=== PATIENT | female | born 1975 | race Caucasian/White ===

== ENCOUNTER 2021-05-15 14:13 | Inpatient (IN) | payer MEDICAID ==
[~2021-05-15] VITALS: Ht 177.8 cm; Wt 103.8 kg
[2021-05-15] MEDS ORDERED: NITROGLYCERIN SUBLINGUAL 0.4 MG BOTTLE OF 25. SL PRN ×2 (14:45→19:00)
[2021-05-15] MEDS ORDERED: ASPIRIN 325 MG TABLET PO ONE (14:45)
[2021-05-15 14:58] LABS: BASO # 0.1 x10^3/uL (0.0-0.2); BASO % 1 % (0-3); EOS # 0.1 x10^3/uL (0.0-0.7); EOS % 1 % (0-3); HEMATOCRIT 32.3 % (36.0-47.0); HEMOGLOBIN 10.8 g/dL (12.0-15.5); LYMPH # 2.7 x10^3/uL (1.0-4.8); LYMPH % 24 % (24-48); MEAN CORPUSCULAR HEMOGLOBIN 25 pg (25-35); MEAN CORPUSCULAR HGB CONC 34 g/dL (31-37); MEAN CORPUSCULAR VOLUME 75 fL (79-100); MONO # 0.6 x10^3/uL (0.0-1.1); MONO % 6 % (0-9); NEUT # 7.6 x10^3/uL (1.8-7.7); NEUT % 69 % (31-73); PLATELET COUNT 308 x10^3/uL (140-400); RED BLOOD COUNT 4.32 x10^6/uL (3.50-5.40); RED CELL DISTRIBUTION WIDTH 15.2 % (11.5-14.5); WHITE BLOOD COUNT 11.1 x10^3/uL (4.0-11.0)
--- NOTE | 2021-05-15 15:08 | RAD ---
AP chest. HISTORY: Chest pain AP view was taken of the chest. There is no pneumothorax or pleural effusion. Heart is normal in size . There are no infiltrates. IMPRESSION: 1. No acute chest disease. Electronically signed by: Morris Small MD (05/15/2021 3:06 PM) [id number]
--- NOTE | 2021-05-15 15:19 | PHYS DOC ---
Past Medical History Past Medical History: High Cholesterol, Hypertension Past Surgical History: Cholecystectomy, Tubal ligation General Adult EDM: Chief Complaint: CHEST PAIN HPI: HPI: Patient is a 46 year old female with a history of high cholesterol, hypertens ion, who presents to the ED today complaining of 2 out of 10 stabbing right- sided chest pain, symptoms have been going on intermittently for 2 days. Patient states symptoms are worse on movement as well as laying back. She states she takes hydrocodone for chronic back pain and this has been relieving the symptoms. Denies any pain radiating to bilateral upper extremities. She states she had a stress test 2 years ago which was negative. 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 Review of Systems: Review of Systems: Constitutional: Denies fever or chills. [] Eyes: Denies change in visual acuity. [] HENT: Denies nasal congestion or sore throat. [] Respiratory: Denies cough or shortness of breath. [] Cardiovascular: Reports right-sided chest pain GI: Denies abdominal pain, nausea, vomiting, bloody stools or diarrhea. [] : Denies dysuria. [] Musculoskeletal: Denies back pain or joint pain. [] Integument: Denies rash. [] Neurologic: Denies headache, focal weakness or sensory changes. [] Psychiatric: Denies depression or anxiety. [] Heart Score: C/O Chest Pain: Yes HEART Score for Chest Pain: HEART Score for Chest Pain Response (Comments) Value History Slighlty/Non-Suspicious 0 ECG Normal 0 Age >45 - < 65 1 Risk Factors 1 or 2 Risk Factors 1 Troponin < Normal Limit 0 Total 2 Risk Factors: Risk Factors: DM, Current or recent (<one month) smoker, HTN, HLP, family history of CAD, obesity. Risk Scores: Score 0 - 3: 2.5% MACE over next 6 weeks - Discharge Home Score 4 - 6: 20.3% MACE over next 6 weeks - Admit for Clinical Observation Score 7 - 10: 72.7% MACE over next 6 weeks - Early Invasive Strategies Current Medications: Current Medications Medications (Trade) Dose Ordered Sig/Vito Start Time Stop Time Status Last Admin Dose Admin Aspirin (Sujey Aspirin) 325 mg 1X ONCE 05/15/21 14:45 05/15/21 14:50 DC Morphine Sulfate (Morphine Sulfate) 4 mg PRN Q15MIN PRN 05/15/21 14:45 05/16/21 14:44 Nitroglycerin (Nitrostat) 0.4 mg PRN Q5MIN PRN 05/15/21 14:45 05/16/21 14:44 Allergies: Allergies: Allergies Coded Allergies Type Severity Reaction Last Updated Verified Penicillins Allergy Severe 05/15/21 Yes codeine Allergy Intermediate 05/15/21 Yes Physical Exam: PE: Constitutional: Well developed, well nourished, no acute distress, non-toxic appearance. [] HENT: Normocephalic, atraumatic, bilateral external ears normal, oropharynx moist, no oral exudates, nose normal. [] Eyes: PERRLA, EOMI, conjunctiva normal, no discharge. [] Neck: Normal range of motion, no tenderness, supple, no stridor. [] Cardiovascular:Heart rate regular rhythm, no murmur [] Lungs & Thorax: Bilateral breath sounds clear to auscultation [] Abdomen: Bowel sounds normal, soft, no tenderness, no masses, no pulsatile masses. [] Skin: Warm, dry, no erythema, no rash. [] Back: No tenderness, no CVA tenderness. [] Extremities: No tenderness, no cyanosis, no clubbing, ROM intact, no edema. [] Neurologic: Alert and oriented X 3, normal motor function, normal sensory function, no focal deficits noted. [] Psychologic: Affect normal, judgement normal, mood normal. [] Current Patient Data: Labs: Laboratory Tests Test 05/15/21 14:30 White Blood Count 11.1 x10^3/uL (4.0-11.0) H Red Blood Count 4.32 x10^6/uL (3.50-5.40) Hemoglobin 10.8 g/dL (12.0-15.5) L Hematocrit 32.3 % (36.0-47.0) L Mean Corpuscular Volume 75 fL (79-100) L Mean Corpuscular Hemoglobin 25 pg (25-35) Mean Corpuscular Hemoglobin Concent 34 g/dL (31-37) Red Cell Distribution Width 15.2 % (11.5-14.5) H Platelet Count 308 x10^3/uL (140-400) Neutrophils (%) (Auto) 69 % (31-73) Lymphocytes (%) (Auto) 24 % (24-48) Monocytes (%) (Auto) 6 % (0-9) Eosinophils (%) (Auto) 1 % (0-3) Basophils (%) (Auto) 1 % (0-3) Neutrophils # (Auto) 7.6 x10^3/uL (1.8-7.7) Lymphocytes # (Auto) 2.7 x10^3/uL (1.0-4.8) Monocytes # (Auto) 0.6 x10^3/uL (0.0-1.1) Eosinophils # (Auto) 0.1 x10^3/uL (0.0-0.7) Basophils # (Auto) 0.1 x10^3/uL (0.0-0.2) Laboratory Tests 05/15/21 14:30 Vital Signs: Vital Signs Date Time Temp Pulse Resp B/P (MAP) Pulse Ox O2 Delivery O2 Flow Rate FiO2 05/15/21 14:20 98.7 78 18 133/78 (96) 95 Room Air 98.7 EKG: EKG: [][id number] Romano sinus rhythm heart rate 80 no STEMI [] Radiology/Procedures: Radiology/Procedures: PROCEDURE: PORTABLE CHEST 1V AP chest. HISTORY: Chest pain AP view was taken of the chest. There is no pneumothorax or pleural effusion. Heart is normal in size. There are no infiltrates. IMPRESSION: 1. No acute chest disease. Electronically signed by: Morris Small MD (05/15/2021 3:06 PM) [id number] DICTATED and SIGNED BY: MORRIS SMALL MD DATE: 05/15/21 1505 Course & Med Decision Making: Course & Med Decision Making Pertinent Labs and Imaging studies reviewed. (See chart for details) This a 46-year-old female patient presented to the ED today complaining of right-sided chest pain, symptoms for 2 days. Vitals on arrival to the ED temperature 98.7, heart rate 78, respiration 18, b lood pressure 133/78, O2 sats 95%. CBC with a WBC of 11.1, hemoglobin 10.8 with hematocrit of 32.3, no previous labs in this hospital. UA pending. Initial first sensitivity troponin is negative, EKG is negative, chest x-ray is negative Spoke to Dr. Mcfadden who accepted patient for admission Routine consult placed for cardiology Suridner Disclaimer: Surinder Disclaimer: This electronic medical record was generated, in whole or in part, using a voice recognition dictation system. Departure Departure Impression: Primary Impression: Chest pain Qualified Codes: R07.9 - Chest pain, unspecified Disposition: 09 ADMITTED INPATIENT Condition: STABLE GERA KANG [employer] CONSULTANT May 15, 2021 15:19
[2021-05-15 15:23] LABS: CALCIUM 8.8 mg/dL (8.5-10.1); CREATININE 0.8 mg/dL (0.6-1.0); GFR 77.2; POTASSIUM 3.7 mmol/L (3.5-5.1)
[2021-05-15] MEDS: MORPHINE SULFATE 4 MG/ML INJ. IV/SQ PRN ×2 (15:36→19:29)
[2021-05-15 15:37] LABS: ALBUMIN/GLOBULIN RATIO 0.6 (1.0-1.7); MAGNESIUM 1.7 mg/dL (1.8-2.4); TOTAL BILIRUBIN 0.3 mg/dL (0.2-1.0); TOTAL PROTEIN 8.4 g/dL (6.4-8.2)
[2021-05-15 17:54] LABS: BARBITURATES NEG (NEG); BENZODIAZEPINES NEG (NEG); CANNABINOIDS NEG (NEG); COCAINE NEG (NEG); METHADONE NEG (NEG); OPIATES NEG (NEG); PHENCYCLIDINE NEG (NEG)
[2021-05-15 17:55] LABS: AMPHETAMINE/METHAMPHETAMINE NEG (NEG)
--- NOTE | 2021-05-15 18:53 | HP ---
DATE OF SERVICE: 05/15/2021 ADMIT DATE: 05/15/2021 CHIEF COMPLAINT: Chest pain. HISTORY OF PRESENT ILLNESS: The patient is a pleasant 46-year-old female who presents to the ER with chest pain, rated at 7/10. This has been occurring for several days, worse with moving, better with sitting still. I discussed the case with ER physician. We are going to admit the patient and consult Cardiology. PAST MEDICAL HISTORY: Hypertension, hyperlipidemia, cholecystectomy, tubal ligation. ALLERGIES: PENICILLIN, CODEINE. FAMILY HISTORY: Diabetes. SOCIAL HISTORY: She does not drink, smoke or take drugs. MEDICATIONS: Reviewed, please refer to the MRAD. REVIEW OF SYSTEMS: GENERAL: No history of weight change, weakness or fevers. SKIN: No bruising, hair changes or rashes. EYES: No blurred, double or loss of vision. NOSE AND THROAT: No history of nosebleeds, hoarseness or sore throat. HEART: She complains of chest pain. LUNGS: Denies cough, hemoptysis, wheezing or shortness of breath. GASTROINTESTINAL: Denies changes in appetite, nausea, vomiting, diarrhea or constipation. GENITOURINARY: No history of frequency, urgency, hesitancy or nocturia. NEUROLOGIC: Denies history of numbness, tingling, tremor or weakness. PSYCHIATRIC: No history of panic, anxiety or depression. ENDOCRINE: No history of heat or cold intolerance, polyuria or polydipsia. EXTREMITIES: Denies muscle weakness, joint pain, pain on walking or stiffness. PHYSICAL EXAMINATION: VITALS: Within normal limits and are stable. GENERAL: No apparent distress. Alert and oriented. HEENT: Normal cephalic atraumatic, external auditory canals are patent. EYES: Extraocular muscles are intact, pupils are equally round and reactive to light and accommodation. MUSCULOSKELETAL: Well developed, well nourished, good range of motion. ENDOCRINE: No thyromegaly was palpated. LYMPHATICS: No cervical chain or axillary nodes were noted. HEMATOPOIETIC: No bruising. NECK: Supple, no JVD, no thyromegaly was noted. LUNGS: Clear to auscultation in all lung eastman without rhonchi or wheezing. HEART: RRR, S1, S2 present. Peripheral pulses intact, no obvious murmurs were noted. ABDOMEN: Soft, nontender. Positive bowel sounds no organomegaly, normal bowel sounds. EXTREMITIES: Without any cyanosis, clubbing, or edema. Pedal pulses intact, Homans sign is negative. NEUROLOGIC: Normal speech, normal tone. A and O x 3, moves all extremities, no obvious focal deficits. PSYCHIATRIC: Normal affect, normal mood. Stable. SKIN: No ulcerations or rashes, good skin turgor, no jaundice. VASCULAR: Good capillary refill, neurovascular bundle appears to be intact. LABORATORY DATA: White count is 11. Troponin less than 4. Sodium 133. Drug screen negative. Chest x-ray negative. ASSESSMENT AND PLAN: Chest pain, rule out coronary artery disease. The patient will be admitted. We will check serial enzymes, serial EKGs, cardiac monitoring, home meds. Deep vein thrombosis prophylaxis. Full code. Consult Cardiology. PARISH/WILL DR: PARISH/clotilde TID: [phone]
[2021-05-15] MEDS ORDERED: ONDANSETRON PF 4 MG/2 ML VIAL. IVP PRN (19:00)
[2021-05-15] MEDS ORDERED: fentaNYL PF VIAL 100 MCG/2 ML VIAL IVP PRN (19:00)
[2021-05-15 21:24] VITALS: BP 173/89
[2021-05-15] MEDS: ACETAMINOPHEN 325 MG TABLET. PO PRN (21:55)
[2021-05-15] MEDS ORDERED: LISI10TA16 PO (22:10)
[2021-05-15] MEDS ORDERED: LORA10CA PO (22:11)
[2021-05-15] MEDS ORDERED: BUDE10.22 IH (22:11)
[2021-05-15] MEDS ORDERED: MONT10TA49 PO (22:11)
[2021-05-15] MEDS ORDERED: ALBU2.5V5 NEB (22:12)
[2021-05-15] MEDS ORDERED: [UNRECOGNIZED DRUG - REMARK] (22:14)
[2021-05-15] MEDS ORDERED: cholesterol med (22:14)
[2021-05-15] MEDS ORDERED: IBUP-1060 PO (22:14)
[2021-05-15 23:11] VITALS: BP 185/87
[2021-05-16] MEDS: LISINOPRIL 10 MG TABLET PO SCH ×2 (00:25→08:07)
[2021-05-16] MEDS: ACETAMINOPHEN 325 MG TABLET. PO PRN ×2 (02:03→08:10)
[2021-05-16 02:23] LABS: BASO % 0 % (0-3); EOS # 0.1 x10^3/uL (0.0-0.7); EOS % 1 % (0-3); HEMATOCRIT 33.7 % (36.0-47.0); HEMOGLOBIN 11.3 g/dL (12.0-15.5); LYMPH # 2.9 x10^3/uL (1.0-4.8); LYMPH % 16 % (24-48); MEAN CORPUSCULAR HEMOGLOBIN 26 pg (25-35); MEAN CORPUSCULAR HGB CONC 34 g/dL (31-37); MEAN CORPUSCULAR VOLUME 76 fL (79-100); MONO # 0.7 x10^3/uL (0.0-1.1); MONO % 4 % (0-9); NEUT % 79 % (31-73); PLATELET COUNT 355 x10^3/uL (140-400); RED BLOOD COUNT 4.43 x10^6/uL (3.50-5.40); RED CELL DISTRIBUTION WIDTH 14.9 % (11.5-14.5); WHITE BLOOD COUNT 17.8 x10^3/uL (4.0-11.0)
[2021-05-16 02:52] LABS: CREATININE 0.9 mg/dL (0.6-1.0); GFR 67.4; POTASSIUM 3.5 mmol/L (3.5-5.1)
[2021-05-16 03:02] VITALS: BP 143/91
[2021-05-16 03:37] LABS: % EOS 1 % (0-5); % LYMPHS 23 % (24-48); % MONOS 3 % (0-10); % SEGS 73 % (35-66); PLT ESTIMATE ADEQUATE (ADEQUATE)
[2021-05-16 07:05] VITALS: BP 142/90
--- NOTE | 2021-05-16 09:26 | PDOC2 ---
CONSULT Date of Consult Date of Consult DATE: 05/16/21 TIME: 09:26 Reason for Consult Reason for Consult: Chest pain Referring Physician Referring Physician: Dr. Mcfadden Identification/Chief Complaint Chief Complaint Chest pain Source Source: Chart review, Patient History of Present Illness Reason for Visit: 46-year-old female without any previous cardiac history presented complaining of approximately 2-day history of on and off retrosternal chest pain that she described as pressure-like sensation, 8/10 severity not related to exertion or food intake. She stated that she has been under a lot of stress ever since her dad 2 months ago. She denied any orthopnea/PND, palpitations or syncope. She is currently chest pain-free. Past Medical History Past Medical History Hypertension Hyperlipidemia Past Surgical History Past Surgical History Cholecystectomy Tubal ligation Family History Family History Positive for coronary artery disease and hypertension Social History Social History Patient denied any smoking, alcohol or drug use Current Problem List Problem List Problems Medical Problems: (1) Chest pain Status: Acute Current Medications Current Medications Current Medications Aspirin (Sujey Aspirin) 325 mg 1X ONCE PO Last administered on 05/15/21at 15:34; Start 05/15/21 at 14:45; Stop 05/15/21 at 14:50; Status DC Nitroglycerin (Nitrostat) 0.4 mg PRN Q5MIN PRN SL CP RATING > 1/10 Last admin istered on 05/15/21at 15:35; Start 05/15/21 at 14:45; Stop 05/16/21 at 14:44 Morphine Sulfate (Morphine Sulfate) 4 mg PRN Q15MIN PRN IV/SQ PAIN GREATER THAN 3/10 Last administered on 05/15/21at 19:29; Start 05/15/21 at 14:45; Stop 05/16/21 at 14:44 Ondansetron HCl (Zofran) 4 mg PRN Q8HRS PRN IVP NAUSEA/VOMITING Last administered on 05/15/21at 19:27; Start 05/15/21 at 19:00; Stop 05/16/21 at 18:59 Fentanyl Citrate (Fentanyl 2ml Vial) 50 mcg PRN Q1HR PRN IVP PAIN; Start 05/15/21 at 19:00; Stop 05/16/21 at 18:59 Acetaminophen (Tylenol) 650 mg PRN Q4HRS PRN PO FEVER > 100.3'F Last administered on 05/16/21at 08:10; Start 05/15/21 at 19:00; Stop 05/16/21 at 18:59 Nitroglycerin (Nitrostat) 0.4 mg PRN Q5MIN PRN SL CHEST PAIN; Start 05/15/21 at 19:00; Stop 05/16/21 at 18:59; Status Cancel Lisinopril (Prinivil) 10 mg DAILY PO Last administered on 05/16/21at 08:07; Start 05/16/21 at 00:30 Active Scripts Active Reported Ibuprofen 800 Mg Tablet 800 Mg PO PRN Q6HRS PRN [musle relaxer] [cholesterol med] Albuterol Sulfate Neb Soln (Albuterol Sulfate) 2.5 Mg/3 Ml Vial.neb 1 Vial NEB PRN Q4HRS PRN Symbicort 80-4.5 Mcg Inhaler (Budesonide/Formoterol Fumarate) 10.2 Gm Hfa.aer.ad 2 Puff IH BID Montelukast Sodium Tablet (Montelukast Sodium) 10 Mg Tablet 10 Mg PO HS Claritin (Loratadine) 10 Mg Capsule 1 Cap PO DAILY 30 Days Lisinopril 10 Mg Tablet 1 Tab PO DAILY Allergies Allergies: Coded Allergies: Penicillins (Verified Allergy, Severe, 05/15/21) codeine (Verified Allergy, Intermediate, 05/15/21) ROS PSYCHOLOGICAL ROS: No: Hallucinations Eyes: No Loss of vision HEENT: No: Epistaxis Respiratory: No: Hemoptysis, Shortness of breath Cardiovascular: yes Chest Pain Gastrointestinal: No Vomiting Genitourinary: No Hematuria Neurological: No Seizures Skin: No Rash Physical Exam General: Alert, Oriented X3, No acute distress HEENT: Atraumatic Lungs: Clear to auscultation Heart: Regular rate Abdomen: Soft Extremities: No edema Neuro: Normal speech Psych/Mental Status: Mood NL Vitals VITALS Vital Signs Date Time Temp Pulse Resp B/P (MAP) Pulse Ox O2 Delivery O2 Flow Rate FiO2 05/16/21 08:07 98 143/91 05/16/21 07:05 98.9 16 98 Room Air 98.9 05/16/21 03:02 2.0 Labs Labs Laboratory Tests Test 05/15/21 14:30 05/15/21 15:20 05/15/21 23:00 05/16/21 02:00 White Blood Count 11.1 x10^3/uL (4.0-11.0) 17.8 x10^3/uL (4.0-11.0) Red Blood Count 4.32 x10^6/uL (3.50-5.40) 4.43 x10^6/uL (3.50-5.40) Hemoglobin 10.8 g/dL (12.0-15.5) 11.3 g/dL (12.0-15.5) Hematocrit 32.3 % (36.0-47.0) 33.7 % (36.0-47.0) Mean Corpuscular Volume 75 fL (79-100) 76 fL (79-100) Mean Corpuscular Hemoglobin 25 pg (25-35) 26 pg (25-35) Mean Corpuscular Hemoglobin Concent 34 g/dL (31-37) 34 g/dL (31-37) Red Cell Distribution Width 15.2 % (11.5-14.5) 14.9 % (11.5-14.5) Platelet Count 308 x10^3/uL (140-400) 355 x10^3/uL (140-400) Neutrophils (%) (Auto) 69 % (31-73) 79 % (31-73) Lymphocytes (%) (Auto) 24 % (24-48) 16 % (24-48) Monocytes (%) (Auto) 6 % (0-9) 4 % (0-9) Eosinophils (%) (Auto) 1 % (0-3) 1 % (0-3) Basophils (%) (Auto) 1 % (0-3) 0 % (0-3) Neutrophils # (Auto) 7.6 x10^3/uL (1.8-7.7) 14.0 x10^3/uL (1.8-7.7) Lymphocytes # (Auto) 2.7 x10^3/uL (1.0-4.8) 2.9 x10^3/uL (1.0-4.8) Monocytes # (Auto) 0.6 x10^3/uL (0.0-1.1) 0.7 x10^3/uL (0.0-1.1) Eosinophils # (Auto) 0.1 x10^3/uL (0.0-0.7) 0.1 x10^3/uL (0.0-0.7) Basophils # (Auto) 0.1 x10^3/uL (0.0-0.2) 0.0 x10^3/uL (0.0-0.2) Sodium Level 133 mmol/L (136-145) 134 mmol/L (136-145) Potassium Level 3.7 mmol/L (3.5-5.1) 3.5 mmol/L (3.5-5.1) Chloride Level 98 mmol/L (98-107) 98 mmol/L (98-107) Carbon Dioxide Level 21 mmol/L (21-32) 26 mmol/L (21-32) Anion Gap 14 (6-14) 10 (6-14) Blood Urea Nitrogen 11 mg/dL (7-20) 10 mg/dL (7-20) Creatinine 0.8 mg/dL (0.6-1.0) 0.9 mg/dL (0.6-1.0) Estimated GFR (Cockcroft-Gault) 77.2 67.4 BUN/Creatinine Ratio 14 (6-20) Glucose Level 120 mg/dL (70-99) 134 mg/dL (70-99) Calcium Level 8.8 mg/dL (8.5-10.1) 9.0 mg/dL (8.5-10.1) Magnesium Level 1.7 mg/dL (1.8-2.4) Total Bilirubin 0.3 mg/dL (0.2-1.0) Aspartate Amino Transf (AST/SGOT) 9 U/L (15-37) Alanine Aminotransferase (ALT/SGPT) 20 U/L (14-59) Alkaline Phosphatase 93 U/L (46-116) Troponin I High Sensitivity < 4 ng/L (4-50) 6 ng/L (4-50) 4 ng/L (4-50) VP-[id number]-Type Natriuretic Peptide 66 pg/mL (0-124) Total Protein 8.4 g/dL (6.4-8.2) Albumin 3.0 g/dL (3.4-5.0) Albumin/Globulin Ratio 0.6 (1.0-1.7) Urine Opiates Screen Neg (NEG) Urine Methadone Screen Neg (NEG) Urine Barbiturates Neg (NEG) Urine Phencyclidine Screen Neg (NEG) Urine Amphetamine/Methamphetamine Neg (NEG) Urine Benzodiazepines Screen Neg (NEG) Urine Cocaine Screen Neg (NEG) Urine Cannabinoids Screen Neg (NEG) Urine Ethyl Alcohol Neg (NEG) Segmented Neutrophils % 73 % (35-66) Lymphocytes % 23 % (24-48) Monocytes % 3 % (0-10) Eosinophils % 1 % (0-5) Platelet Estimate Adequate (ADEQUATE) Laboratory Tests Test 05/15/21 14:30 05/15/21 15:20 05/15/21 23:00 05/16/21 02:00 White Blood Count 11.1 x10^3/uL (4.0-11.0) 17.8 x10^3/uL (4.0-11.0) Red Blood Count 4.32 x10^6/uL (3.50-5.40) 4.43 x10^6/uL (3.50-5.40) Hemoglobin 10.8 g/dL (12.0-15.5) 11.3 g/dL (12.0-15.5) Hematocrit 32.3 % (36.0-47.0) 33.7 % (36.0-47.0) Mean Corpuscular Volume 75 fL (79-100) 76 fL (79-100) Mean Corpuscular Hemoglobin 25 pg (25-35) 26 pg (25-35) Mean Corpuscular Hemoglobin Concent 34 g/dL (31-37) 34 g/dL (31-37) Red Cell Distribution Width 15.2 % (11.5-14.5) 14.9 % (11.5-14.5) Platelet Count 308 x10^3/uL (140-400) 355 x10^3/uL (140-400) Neutrophils (%) (Auto) 69 % (31-73) 79 % (31-73) Lymphocytes (%) (Auto) 24 % (24-48) 16 % (24-48) Monocytes (%) (Auto) 6 % (0-9) 4 % (0-9) Eosinophils (%) (Auto) 1 % (0-3) 1 % (0-3) Basophils (%) (Auto) 1 % (0-3) 0 % (0-3) Neutrophils # (Auto) 7.6 x10^3/uL (1.8-7.7) 14.0 x10^3/uL (1.8-7.7) Lymphocytes # (Auto) 2.7 x10^3/uL (1.0-4.8) 2.9 x10^3/uL (1.0-4.8) Monocytes # (Auto) 0.6 x10^3/uL (0.0-1.1) 0.7 x10^3/uL (0.0-1.1) Eosinophils # (Auto) 0.1 x10^3/uL (0.0-0.7) 0.1 x10^3/uL (0.0-0.7) Basophils # (Auto) 0.1 x10^3/uL (0.0-0.2) 0.0 x10^3/uL (0.0-0.2) Sodium Level 133 mmol/L (136-145) 134 mmol/L (136-145) Potassium Level 3.7 mmol/L (3.5-5.1) 3.5 mmol/L (3.5-5.1) Chloride Level 98 mmol/L (98-107) 98 mmol/L (98-107) Carbon Dioxide Level 21 mmol/L (21-32) 26 mmol/L (21-32) Anion Gap 14 (6-14) 10 (6-14) Blood Urea Nitrogen 11 mg/dL (7-20) 10 mg/dL (7-20) Creatinine 0.8 mg/dL (0.6-1.0) 0.9 mg/dL (0.6-1.0) Estimated GFR (Cockcroft-Gault) 77.2 67.4 BUN/Creatinine Ratio 14 (6-20) Glucose Level 120 mg/dL (70-99) 134 mg/dL (70-99) Calcium Level 8.8 mg/dL (8.5-10.1) 9.0 mg/dL (8.5-10.1) Magnesium Level 1.7 mg/dL (1.8-2.4) Total Bilirubin 0.3 mg/dL (0.2-1.0) Aspartate Amino Transf (AST/SGOT) 9 U/L (15-37) Alanine Aminotransferase (ALT/SGPT) 20 U/L (14-59) Alkaline Phosphatase 93 U/L (46-116) Troponin I High Sensitivity < 4 ng/L (4-50) 6 ng/L (4-50) 4 ng/L (4-50) KL-Pzu-I-Type Natriuretic Peptide 66 pg/mL (0-124) Total Protein 8.4 g/dL (6.4-8.2) Albumin 3.0 g/dL (3.4-5.0) Albumin/Globulin Ratio 0.6 (1.0-1.7) Urine Opiates Screen Neg (NEG) Urine Methadone Screen Neg (NEG) Urine Barbiturates Neg (NEG) Urine Phencyclidine Screen Neg (NEG) Urine Amphetamine/Methamphetamine Neg (NEG) Urine Benzodiazepines Screen Neg (NEG) Urine Cocaine Screen Neg (NEG) Urine Cannabinoids Screen Neg (NEG) Urine Ethyl Alcohol Neg (NEG) Segmented Neutrophils % 73 % (35-66) Lymphocytes % 23 % (24-48) Monocytes % 3 % (0-10) Eosinophils % 1 % (0-5) Platelet Estimate Adequate (ADEQUATE) Assessment/Plan Assessment/Plan 1. Chest pain with atypical features. Myocardial infarction has been ruled out. Plan for outpatient exercise stress echocardiogram to rule out ischemic etiology -we will schedule this through our office next week. Okay for DC from cardiac standpoint. 2. Accelerated hypertension: Resume home medication lisinopril and titrate for better control. 3. Asthma: Clinically stable 4. Hyperlipidemia Thank you for your consultation LEYDI ZARAGOZA MD May 16, 2021 09:26
[2021-05-16 11:30] VITALS: BP 130/77
[2021-05-16] MEDS ORDERED: CEPH500C PO (12:23)
[2021-05-16] MEDS ORDERED: CEPHALEXIN 250 MG CAPSULE. PO SCH (13:00)
[2021-05-16 13:19] LABS: BASE EXCESS ABG 1 mmol/L (-3-3); FIO2 ABG Room Air; HCO3 ABG 25 mmol/L (21-28); PCO2 ABG 38 mmHg (35-46); PO2 ABG 71 mmHg (75-108); SAT O2 ABG 93 % (92-99)
--- NOTE | 2021-05-16 15:39 | NUR ---
DISCHARGED PATIENT HOME. DISCHARGE INSTRUCTIONS GIVEN. PIV AND HEART MONITOR REMOVED. ESCORTED PATIENT OFF UNIT INTO A PRIVATE VEHICLE.
--- NOTE | 2021-05-16 16:28 | PDOC3 ---
Discharge Summary Visit Information Date of Admission: May 15, 2021 Date of Discharge: May 16, 2021 Final Diagnosis 1. Chest pain , miod angina, ACS ruled out 2. Accelerated hypertension: lisinopril 3. HAYDE, desat while sleeping, needs sleep study, 4. Hyperlipidemia 5. asthma, home meds Problems Medical Problems: (1) Chest pain Status: Acute Brief Hospital Course Allergies Allergies Coded Allergies Type Severity Reaction Last Updated Verified Penicillins Allergy Severe 05/15/21 Yes codeine Allergy Intermediate 05/15/21 Yes Vital Signs Vital Signs Date Time Temp Pulse Resp B/P (MAP) Pulse Ox O2 Delivery O2 Flow Rate FiO2 05/16/21 11:30 98.8 108 16 130/77 (94) 97 Room Air 98.8 05/16/21 03:02 2.0 Lab Results Laboratory Tests Test 05/15/21 14:30 05/15/21 15:20 05/15/21 23:00 05/16/21 02:00 White Blood Count 11.1 x10^3/uL (4.0-11.0) 17.8 x10^3/uL (4.0-11.0) Red Blood Count 4.32 x10^6/uL (3.50-5.40) 4.43 x10^6/uL (3.50-5.40) Hemoglobin 10.8 g/dL (12.0-15.5) 11.3 g/dL (12.0-15.5) Hematocrit 32.3 % (36.0-47.0) 33.7 % (36.0-47.0) Mean Corpuscular Volume 75 fL (79-100) 76 fL (79-100) Mean Corpuscular Hemoglobin 25 pg (25-35) 26 pg (25-35) Mean Corpuscular Hemoglobin Concent 34 g/dL (31-37) 34 g/dL (31-37) Red Cell Distribution Width 15.2 % (11.5-14.5) 14.9 % (11.5-14.5) Platelet Count 308 x10^3/uL (140-400) 355 x10^3/uL (140-400) Neutrophils (%) (Auto) 69 % (31-73) 79 % (31-73) Lymphocytes (%) (Auto) 24 % (24-48) 16 % (24-48) Monocytes (%) (Auto) 6 % (0-9) 4 % (0-9) Eosinophils (%) (Auto) 1 % (0-3) 1 % (0-3) Basophils (%) (Auto) 1 % (0-3) 0 % (0-3) Neutrophils # (Auto) 7.6 x10^3/uL (1.8-7.7) 14.0 x10^3/uL (1.8-7.7) Lymphocytes # (Auto) 2.7 x10^3/uL (1.0-4.8) 2.9 x10^3/uL (1.0-4.8) Monocytes # (Auto) 0.6 x10^3/uL (0.0-1.1) 0.7 x10^3/uL (0.0-1.1) Eosinophils # (Auto) 0.1 x10^3/uL (0.0-0.7) 0.1 x10^3/uL (0.0-0.7) Basophils # (Auto) 0.1 x10^3/uL (0.0-0.2) 0.0 x10^3/uL (0.0-0.2) Sodium Level 133 mmol/L (136-145) 134 mmol/L (136-145) Potassium Level 3.7 mmol/L (3.5-5.1) 3.5 mmol/L (3.5-5.1) Chloride Level 98 mmol/L (98-107) 98 mmol/L (98-107) Carbon Dioxide Level 21 mmol/L (21-32) 26 mmol/L (21-32) Anion Gap 14 (6-14) 10 (6-14) Blood Urea Nitrogen 11 mg/dL (7-20) 10 mg/dL (7-20) Creatinine 0.8 mg/dL (0.6-1.0) 0.9 mg/dL (0.6-1.0) Estimated GFR (Cockcroft-Gault) 77.2 67.4 BUN/Creatinine Ratio 14 (6-20) Glucose Level 120 mg/dL (70-99) 134 mg/dL (70-99) Calcium Level 8.8 mg/dL (8.5-10.1) 9.0 mg/dL (8.5-10.1) Magnesium Level 1.7 mg/dL (1.8-2.4) Total Bilirubin 0.3 mg/dL (0.2-1.0) Aspartate Amino Transf (AST/SGOT) 9 U/L (15-37) Alanine Aminotransferase (ALT/SGPT) 20 U/L (14-59) Alkaline Phosphatase 93 U/L (46-116) Troponin I High Sensitivity < 4 ng/L (4-50) 6 ng/L (4-50) 4 ng/L (4-50) XQ-Pab-J-Type Natriuretic Peptide 66 pg/mL (0-124) Total Protein 8.4 g/dL (6.4-8.2) Albumin 3.0 g/dL (3.4-5.0) Albumin/Globulin Ratio 0.6 (1.0-1.7) Urine Opiates Screen Neg (NEG) Urine Methadone Screen Neg (NEG) Urine Barbiturates Neg (NEG) Urine Phencyclidine Screen Neg (NEG) Urine Amphetamine/Methamphetamine Neg (NEG) Urine Benzodiazepines Screen Neg (NEG) Urine Cocaine Screen Neg (NEG) Urine Cannabinoids Screen Neg (NEG) Urine Ethyl Alcohol Neg (NEG) Segmented Neutrophils % 73 % (35-66) Lymphocytes % 23 % (24-48) Monocytes % 3 % (0-10) Eosinophils % 1 % (0-5) Platelet Estimate Adequate (ADEQUATE) Test 05/16/21 13:02 O2 Saturation 93 % (92-99) Arterial Blood pH 7.44 (7.35-7.45) Arterial Blood pCO2 at Patient Temp 38 mmHg (35-46) Arterial Blood pO2 at Patient Temp 71 mmHg (75-108) Arterial Blood HCO3 25 mmol/L (21-28) Arterial Blood Base Excess 1 mmol/L (-3-3) FiO2 Room air Laboratory Tests Test 05/15/21 23:00 05/16/21 02:00 05/16/21 13:02 Troponin I High Sensitivity 6 ng/L (4-50) 4 ng/L (4-50) White Blood Count 17.8 x10^3/uL (4.0-11.0) Red Blood Count 4.43 x10^6/uL (3.50-5.40) Hemoglobin 11.3 g/dL (12.0-15.5) Hematocrit 33.7 % (36.0-47.0) Mean Corpuscular Volume 76 fL (79-100) Mean Corpuscular Hemoglobin 26 pg (25-35) Mean Corpuscular Hemoglobin Concent 34 g/dL (31-37) Red Cell Distribution Width 14.9 % (11.5-14.5) Platelet Count 355 x10^3/uL (140-400) Neutrophils (%) (Auto) 79 % (31-73) Lymphocytes (%) (Auto) 16 % (24-48) Monocytes (%) (Auto) 4 % (0-9) Eosinophils (%) (Auto) 1 % (0-3) Basophils (%) (Auto) 0 % (0-3) Neutrophils # (Auto) 14.0 x10^3/uL (1.8-7.7) Lymphocytes # (Auto) 2.9 x10^3/uL (1.0-4.8) Monocytes # (Auto) 0.7 x10^3/uL (0.0-1.1) Eosinophils # (Auto) 0.1 x10^3/uL (0.0-0.7) Basophils # (Auto) 0.0 x10^3/uL (0.0-0.2) Segmented Neutrophils % 73 % (35-66) Lymphocytes % 23 % (24-48) Monocytes % 3 % (0-10) Eosinophils % 1 % (0-5) Platelet Estimate Adequate (ADEQUATE) Sodium Level 134 mmol/L (136-145) Potassium Level 3.5 mmol/L (3.5-5.1) Chloride Level 98 mmol/L (98-107) Carbon Dioxide Level 26 mmol/L (21-32) Anion Gap 10 (6-14) Blood Urea Nitrogen 10 mg/dL (7-20) Creatinine 0.9 mg/dL (0.6-1.0) Estimated GFR (Cockcroft-Gault) 67.4 Glucose Level 134 mg/dL (70-99) Calcium Level 9.0 mg/dL (8.5-10.1) O2 Saturation 93 % (92-99) Arterial Blood pH 7.44 (7.35-7.45) Arterial Blood pCO2 at Patient Temp 38 mmHg (35-46) Arterial Blood pO2 at Patient Temp 71 mmHg (75-108) Arterial Blood HCO3 25 mmol/L (21-28) Arterial Blood Base Excess 1 mmol/L (-3-3) FiO2 Room air Brief Hospital Course Ms. Mejia is a 46 old female, admit with chest pain, r/o ACS, angina, better in AM, bp high, better with lisinopril, Hypoxic sleeping or lying flat, HAYDE discussed, needs sleep study, f/u primary care, instructed to sleep on front or side until has CPAP Discharge Information Condition at Discharge: Improved Follow Up: Weeks Disposition/Orders: D/C to Home Scheduled Budesonide/Formoterol Fumarate (Symbicort 80-4.5 Mcg Inhaler) 10.2 Gm Hfa.aer.ad, 2 PUFF IH BID for respiratory, #10.2 Ref 5 (Reported) Entered as Reported by: Branden Montenegro on 05/15/212210 Last Action: New Order on 05/15/212210 by Branden Montenegro Cephalexin (Keflex) 500 Mg Capsule, 1 CAP PO TID for dental caries, #21 Prescribed by: JESÚS GALLARDO on 05/16/21 1223 Lisinopril (Lisinopril) 10 Mg Tablet, 1 TAB PO DAILY for blood pressure, #30 Ref 5 (Reported) Entered as Reported by: Branden Montenegro on 05/15/212209 Last Action: Continued on 05/16/217 by Branden Montenegro Loratadine (Claritin) 10 Mg Capsule, 1 CAP PO DAILY for allergy symptoms for 30 Days, #30 Ref 0 (Reported) Entered as Reported by: Branden Montenegro on 05/15/212210 Last Action: New Order on 05/15/212210 by Branden Montenegro Montelukast Sodium (Montelukast Sodium Tablet ) 10 Mg Tablet, 10 MG PO HS for FOR ASTHMA, Ref 0 (Reported) Entered as Reported by: Branden Montenegro on 05/15/212210 Last Action: New Order on 05/15/212210 by Branden Montenegro Scheduled PRN Albuterol Sulfate (Albuterol Sulfate Neb Soln) 2.5 Mg/3 Ml Vial.neb, 1 VIAL NEB PRN Q4HRS PRN for respiratory, #50 (Reported) Entered as Reported by: Branden Montenegro on 05/15/212211 Last Action: New Order on 05/15/212211 by Branden Montenegro Ibuprofen (Ibuprofen) 800 Mg Tablet, 800 MG PO PRN Q6HRS PRN for INFLAMMATION, (Reported) Entered as Reported by: Branden Montenegro on 05/15/212213 Last Action: New Order on 05/15/212213 by Branden Montenegro Miscellaneous Medications [cholesterol med] , (Reported) Entered as Reported by: Branden Montenegro on 05/15/212213 Last Action: New Order on 05/15/212213 by Branden Montenegro [musle relaxer] , (Reported) Entered as Reported by: Branden Montenegro on 05/15/212213 Last Action: New Order on 05/15/212213 by Branden Montenegro Patient Instructions Patient Instructions f/u primayr Justicifation of Admission Dx: Justifications for Admission: Justification of Admission Dx: JESÚS Perez MD May 16, 2021 16:28
--- NOTE | 2021-05-17 00:57 | EKG ---
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
== END 2021-05-16 15:44 | disposition home or self-care (01) | DRG 392 ==
LOC: ER 14:13 → 6 SOUTH 17:40
PROVIDERS: ADMIT Internal Medicine; ATTEND Internal Medicine
DX: K21.9 Gastro-esophageal reflux disease without esophagitis (principal); R07.89 Other chest pain; I20.9 Angina pectoris, unspecified; E78.00 Pure hypercholesterolemia, unspecified; E78.5 Hyperlipidemia, unspecified; G89.29 Other chronic pain; I10 Essential (primary) hypertension; G47.33 Obstructive sleep apnea (adult) (pediatric); J45.909 Unspecified asthma, uncomplicated; Z82.49 Family history of ischemic heart disease and other diseases of the circulatory system; Z83.3 Family history of diabetes mellitus; Z90.49 Acquired absence of other specified parts of digestive tract; Z98.51 Tubal ligation status; Z88.5 Allergy status to narcotic agent; Z88.0 Allergy status to penicillin
CPT/HCPCS: 36415; 36600; 71045; 80048; 80053; 80307; 82805; 83735; 83880; 84484; 85007; 85025; 93005; J2270; J2405; 99285-25; G0378